=== PATIENT | male | born 1980 | race Caucasian/White ===

== ENCOUNTER 2023-07-20 21:15 | Emergency (ER) | payer SELFPAY ==
[2023-07-20 21:24] VITALS: BP 129/82; PULSE 81; RESP 18; TEMP 98; BMI 26.2
[2023-07-20] MEDS ORDERED: BACITRACIN ZINC 15 GM TUBE TOPICAL OINTMENT ONE (22:04)
[2023-07-20] MEDS: BACITRACIN ZINC 15 GM TUBE TOPICAL OINTMENT TP ONE (22:05)
[2023-07-20] MEDS ORDERED: DIPHTH,PERTUSS(ACELL),TET 0.5 ML DISP.SYRIN IM ONE (22:27)
[2023-07-20] MEDS: DIPHTH,PERTUSS(ACELL),TET 0.5 ML DISP.SYRIN IM ONE (22:33)
== END 2023-07-20 22:45 | disposition home or self-care (01) ==
LOC: JERFT 21:15
PROC: 3E0234Z Introduction of Serum, Toxoid and Vaccine into Muscle, Percutaneous Approach (ICD-10-PCS; principal; 2023-07-20)
DX: S01.01XA Laceration without foreign body of scalp, initial encounter (principal); W18.39XA Other fall on same level, initial encounter; Z23 Encounter for immunization
CPT/HCPCS: 90715; 99283-25